=== PATIENT | male | born 1955 | race Caucasian/White ===

== ENCOUNTER → 2020-12-30 12:41 | Outpatient (CLI) | payer OTHER, SELFPAY ==
--- NOTE | ~2020-12-30 | CT_ITS ---
EXAMINATION: CT diagnostic chest wo con DATE: 12/30/2020 12:57 INDICATION: Lung nodule TECHNIQUE: Computed tomography (CT) of the chest was performed without intravenous contrast. Automate d exposure control and iterative reconstruction technique were employed. Exam dose: 384.24 mGy-cm to juliano exam DLP. COMPARISON: None FINDINGS: There is an irregular lobular up to 2 cm mass in the posterior segment of the right upper l obe (series 4 images 34-40). This is very suspicious for lung malignancy. No pulmonary mass lesion is detected otherwise. No pulmonary infiltrate or consolidation. Normal heart size. No pericardial effusion. Coronary artery calcification is noted. There is aortic and great vessel calcification. No thoracic aortic aneurysm. There is right paratracheal lymphadenopathy with nodes measuring up to approximately 12 and 14.5 cm s hort axis diameter. Normal size and homogeneous density of the thyroid gland. No axillary lymphadenopathy. Normal morphology of the adrenal glands. No suspicious osteolytic or osteoblastic lesions are noted. IMPRESSION: Irregular 2 cm lobular posterior segment right upper lobe mass with right paratracheal l ymphadenopathy, suspicious for lung cancer and metastatic paratracheal lymphadenopathy On August 29, [address] Javier telephoned the report to [employer] at [phone]. Reviewed, dictated and finalized at [facility]. Reviewed, dictated and finalized at [facility]. [employer] IMPRESSION: Irregular 2 cm lobular posterior segment right upper lobe mass wit h right paratracheal lymphadenopathy, suspicious for lung cancer and metastatic paratracheal lymphadenopathy On August 29, [address] Javier telephoned the report to [employer] at [phone].
== END ==
PROVIDERS: PCP Family Medicine; Visit Provider Family Medicine
DX: R91.1 Solitary pulmonary nodule (principal)
CPT/HCPCS: 71250